=== PATIENT | male | born 1980 | race Caucasian/White ===

== ENCOUNTER 2020-02-17 11:38 | Outpatient (CLI) | payer MEDICAID ==
[2020-02-17 12:20] LABS: CHOL/HDL RATIO 4.6 (<5.0); CHOLESTEROL 258 mg/dL; HDL CHOLESTEROL 56 mg/dL; LDL CHOLESTEROL,CALCULATED 180 mg/dL; LDL/HDL RATIO 3.2 (<3.6); VLDL CHOLESTEROL 22 mg/dL
[2020-02-17 13:33] LABS: HEMOGLOBIN A1c% 5.5 % (4.27-6.07)
== END 2020-02-17 11:39 | disposition home or self-care (01) ==
LOC: LAB 11:38
PROVIDERS: ATTEND Family Medicine
DX: E66.3 Overweight (principal)
CPT/HCPCS: 36415; 80061; 83036; 83721